=== PATIENT | female | born 1945 | race Caucasian/White ===

== ENCOUNTER 2019-12-07 10:19 | Emergency (ER) | payer MEDICARE, SELFPAY ==
[2019-12-07] VITALS (17 sets, daily range): BP systolic 110–147; BP diastolic 55–73; PULSE 51–67; RESP 12–29; TEMP 36.5; O2SAT 98–100; BMI 25.0
--- NOTE | 2019-12-07 11:29 | DI.RAD.S_ITS ---
PROCEDURE: XR CHEST 2V INDICATIONS: left side chest pain under breast TECHNIQUE: 2 views of the chest were acquired. COMPARISON: None. FINDINGS: Surgical changes and devices: None. Lungs and pleura: Lungs are clear. No pleural effusions or pneumothorax. Mediastinum: Mediastinal contours are normal. Heart size is normal. Bones and chest wall: No suspicious bony abnormalities. Soft tissues appear unremarkable. IMPRESSION: No acute cardiopulmonary abnormalities or focal airspace disease. No abnormalities identified to explain patient's symptoms. Dictated by: Quinten Hernandez M.D. on 12/07/2019 at 11:41 Approved by: Quinten Hernandez M.D. on 12/07/2019 at 11:45
[2019-12-07 12:05] LABS: Add Manual Diff / Slide Review NO; Basophils Absolute Auto 100 /uL (0-100); Basophils Percent Auto 1.1 % (0-2); Eosinophils Absolute Auto 300 /uL (0-450); Eosinophils Percent Auto 5.3 % (2-4); Hematocrit 40.2 % (36-46); Hemoglobin 13.8 g/dL (12.0-16.0); Lymphocytes Absolute Auto 1600 /uL (1100-4500); Lymphocytes Percent Auto 27.1 % (25-40); Mean Corpuscular HGB Conc 34.2 % (30-36); Mean Corpuscular Hemoglobin 29.7 PG (26-34); Mean Corpuscular Volume 86.9 fL (80-100); Monocytes Absolute Auto 600 /uL (0-900); Monocytes Percent Auto 10.2 % (3-14); Neutrophils Absolute Auto 3300 /uL (1500-7000); Neutrophils Percent Auto 56.3 % (50-75); Platelet Count 184 X10^3/uL (150-400); Red Blood Cell Count 4.63 X10^6/uL (4.0-5.2); Red Cell Distribution Width 14.2 % (11.6-14.8); White Blood Cell Count 5.9 X10^3/uL (4.5-11.0)
[2019-12-07 12:11] LABS: Prothrombin Time 10.9 SECONDS (10.1-12.7)
[2019-12-07 12:13] LABS: PTT Partial Thromboplastin Tim 32 SECONDS (26.4-36.2)
[2019-12-07 12:17] LABS: Alanine Aminotransferase 22 IU/L (<35); Albumin 4.4 g/dL (3.5-5.0); Albumin Globulin Ratio 1.5 (1.0-2.8); Alkaline Phosphatase 47 U/L (38-126); Aspartate Aminotransferase 27 IU/L (14-36); BUN Creatinine Ratio 21.3 (6-22); Bilirubin Total 0.5 mg/dL (0.2-1.3); Blood Urea Nitrogen 16 mg/dL (7-17); Calcium 10.2 mg/dL (8.4-10.2); Carbon Dioxide 32 mmol/L (22-32); Chloride 102 mmol/L (98-107); Creatine Kinase 86 U/L (30-135); Estimated Glomerular Filt Rate > 60.0 mL/min (>60); Glucose 94 mg/dL (80-110); HEMOLYSIS < 15 (0-50); Lipase 143 U/L (23-300); Potassium 4.1 mmol/L (3.4-5.1); Sodium 137 mmol/L (137-145); Total Protein 7.4 g/dL (6.3-8.2)
[2019-12-07 12:18] LABS: C-Reactive Protein Quant < 0.5 mg/dL (<1.0)
[2019-12-07 12:22] LABS: Erythrocyte Sedimentation Rate 9 MM/HR (0-20)
[2019-12-07 12:26] LABS: Troponin I < 0.012 ng/mL (0.01-0.034)
--- NOTE | 2019-12-07 12:46 | ED.CHESTPAIN ---
HPI - Chest Pain <ANGIE Carnes - Last Filed: 12/08/19 01:26> General Chief Complaint: Chest Pain Stated Complaint: Right pericardium pain/right arm tingling x5 Time Seen by Provider: 12/07/19 11:09 Source: patient Mode of arrival: Ambulatory Limitations: no limitations History of Present Illness HPI narrative: This is a 74 year female, nonsmoker, who has non contributory history presents to ED with 1 week left upper extremity tingling sensation and discomfort in ulnar nerve distribution and also she noticed left under the breast pressure-like discomfort and swelling last 2 days. Patient reports left arm discomfort worst with movement and it feels like something is catching. She had taken Advil yesterday morning which helped with discomfort. She denies associated symptoms such as breathing difficulty, lightheadedness, nausea or vomiting, C-spine injury or neck tenderness, rash, warmth, recent cough, fever or chills. Patient reports good strenth. Patient has annual mammogram test which was told normal. Patient reports discomfort feels deep inside and rates it as 1/10. She denies pain is reproducible or worsens with changing in position or deep breath. Patient denies family history of early cardiac deaths. She had echocardiogram and treadmill test about 10 years ago when she had started [employer] and felt weird sensation in her chest and was told which were normal. Patient states she had red up about pericarditis and also thought she may have pinched unlar nerve. Related Data Home Medications Medication Instructions Recorded Confirmed levothyroxine [Synthroid] 75 mcg PO QAM #0 04/15/17 12/07/19 epinephrine 0.3 mg IM DAILY PRN 12/07/19 12/07/19 Allergies Allergy/AdvReac Type Severity Reaction Status Date / Time No Known Drug Allergies Allergy Verified 12/07/19 10:36 Review of Systems <ANGIE Carnes - Last Filed: 12/08/19 01:26> Review of Systems Narrative: General: Denies fever, chills, fatigue, malaise, sweats. HEENT: Denies sinus pain, ear pain, sore throat, difficulty swallowing, dizziness. Respiratory: Denies dyspnea, cough, wheezing, hemoptysis, sputum. Cardiovascular: See HPI Gastrointestinal: Denies nausea, vomiting, abdominal pain, diarrhea, constipation, melena. : Denies dysuria, frequency, incontinence, hematuria, urinary retention. Musculoskeletal: See HPI Skin: Denies rash, skin lesions, or other. Neurologic: Denies weakness, headache, numbness, change in speech, confusion, seizures, incoordination. Psychiatric: No concerning psychosocial issues. 12-point review of systems is negative except for those stated above. Patient History <ANGIE Carnes - Last Filed: 12/08/19 01:26> Surgical History H/O thyroidectomy (Acute) Social History Smoking Status: Never smoker Smoking Status: Never smoker alcohol intake frequency: 0-2 drinks per day Substance Use Type: does not use Exam <ANGIE Carnes - Last Filed: 12/08/19 01:26> Narrative Exam Narrative: GEN: Alert, oriented x 3, well appearing and nourished, and in no acute distress. Head: Normal cephalic, atraumatic. No scalp or temporal tenderness, palpable mass or rash. EYES: Pupils are equal, round, and reactive to light and accommodation. Extraocular muscles are intact bilaterally. There is no subconjunctival hemorrhage, exudate and sclera non-icteric. ENT: Hearing grossly intact. Nose without bleeding, purulent discharge or deviation. Mucous membrane moist, no mucosal lesion. Throat without erythema, tonsillar hypertrophy or exudate. Uvula in midline, airway patent. Neck: Trachea in midline. No JVD, non-tender without lymphadenopathy. No masses or thyroid megaly. Supple, non-tender and no meningeal signs. CARDIAC: Normal regular rate and rhythm without murmurs, gallops, or rubs. No chest wall tenderness. No peripheral edema, cyanosis or pallor. Capillary refill is less than 2 seconds. RESPIRATORY: Lungs are clear to auscultate bilaterally. No cough, wheezes, rales, or rhonchi. No stridor, respiratory distress, increase work of breathing, or accessary muscle used. ABD: Abdomen soft, nontender and non-distended. No guarding or rebound tenderness to palpate. Bowel sounds are normal in all 4 quadrants. There is no palpable masses or organomegaly. EXT: Full painless ROM of all extremities with no loss of sensation, strength, effusion or edema. SKIN: Warm, dry, normal color for patient. No erythema, lesions or rash over visible areas. BACK: Nontender without deformity or crepitance. No flank tenderness. NEUROLOGICAL: Alert and oriented to place, time and person. Sensation and motor function intact bilaterally. No facial droops, dysphasia. PSYCHIATRIC: Good judgement and reason, without hallucinations, abnormal affect or abnormal behaviors during the examination. Patient is not suicidal. Initial Vital Signs Initial Vital Signs: Vital Signs Pulse Rate 59 L 12/07/19 10:30 Respiratory Rate 21 12/07/19 10:30 Pulse Oximetry 100 12/07/19 10:30 <Terrence Zhao MD - Last Filed: 12/13/19 03:41> Initial Vital Signs Initial Vital Signs: Vital Signs Pulse Rate 59 L 12/07/19 10:30 Respiratory Rate 21 12/07/19 10:30 Pulse Oximetry 100 12/07/19 10:30 Scores <ANGIE Carnes - Last Filed: 12/08/19 01:26> GCS [place] coma scale eye opening: Spontaneous [place] coma scale verbal response: Orientated [place] coma scale motor response: Obey commands [place] coma scale total score: 15 HEART Score Heart Score history: Slightly Suspicious Heart Score EKG: Normal Heart Score Age: > or = 65 years old Heart Score risk factors: No known risk factors Heart Score troponin: < or = to normal limit Heart Score Total: 2 Course <ANGIE Carnes Last Filed: 12/08/19 01:26> Orders Ordered: ED Orders 12/07/19 10:32 EKG-12 Lead Stat 12/07/19 11:29 XR chest 2V Stat 12/07/19 12:00 C-Reactive Protein Quant Stat Complete Blood Count AUTO DIFF Stat Comprehensive Metabolic Panel Stat Erythrocyte Sedimentation Rate Stat Lipase Stat Partial Thromboplastin Time Stat Prothrombin Time INR Stat Troponin & CK Cardiac Panel Stat Vital Signs Vital signs: Vital Signs - 8 hr 12/07/19 10:30 12/07/19 10:31 12/07/19 10:32 Temperature 97.7 F Pulse Rate 59 L 57 L 67 Respiratory Rate 21 14 14 Blood Pressure 128/58 L 147/73 H Pulse Oximetry 100 100 100 12/07/19 11:00 12/07/19 11:01 12/07/19 11:30 Temperature Pulse Rate 51 L 52 L 58 L Respiratory Rate 12 21 18 Blood Pressure 111/55 L Pulse Oximetry 99 98 99 12/07/19 11:31 12/07/19 12:00 12/07/19 12:01 Temperature Pulse Rate 59 L 51 L 55 L Respiratory Rate 16 22 16 Blood Pressure 121/64 115/57 L Pulse Oximetry 100 100 100 12/07/19 12:30 12/07/19 12:31 Temperature Pulse Rate 55 L 57 L Respiratory Rate 24 20 Blood Pressure 122/56 L Pulse Oximetry 99 100 <Terrence Zhao MD - Last Filed: 12/13/19 03:41> Orders Ordered: ED Orders 12/07/19 10:32 EKG-12 Lead Stat 12/07/19 11:29 XR chest 2V Stat 12/07/19 12:00 C-Reactive Protein Quant Stat Complete Blood Count AUTO DIFF Stat Comprehensive Metabolic Panel Stat Erythrocyte Sedimentation Rate Stat Lipase Stat Partial Thromboplastin Time Stat Prothrombin Time INR Stat Troponin & CK Cardiac Panel Stat Vital Signs Vital signs: Vital Signs - 8 hr 12/07/19 10:30 12/07/19 10:31 12/07/19 10:32 Temperature 97.7 F Pulse Rate 59 L 57 L 67 Respiratory Rate 21 14 14 Blood Pressure 128/58 L 147/73 H Pulse Oximetry 100 100 100 12/07/19 11:00 12/07/19 11:01 12/07/19 11:30 Temperature Pulse Rate 51 L 52 L 58 L Respiratory Rate 12 21 18 Blood Pressure 111/55 L Pulse Oximetry 99 98 99 12/07/19 11:31 12/07/19 12:00 12/07/19 12:01 Temperature Pulse Rate 59 L 51 L 55 L Respiratory Rate 16 22 16 Blood Pressure 121/64 115/57 L Pulse Oximetry 100 100 100 12/07/19 12:30 12/07/19 12:31 Temperature Pulse Rate 55 L 57 L Respiratory Rate 24 20 Blood Pressure 122/56 L Pulse Oximetry 99 100 MDM - Chest Pain <Priyank ANGIE Corral - Last Filed: 12/08/19 01:26> Differential Diagnosis Differential diagnosis: Likely atypical chest pain, costochondritis and other (DVT, ulna nerve radiculopathy, pneumonia, pericarditis,) Medical Records Data Attestation: I reviewed the patient's medical records. Lab Data Attestation: I reviewed the patient's lab results. Result diagrams: 12/07/19 12:00 12/07/19 12:00 Labs: Lab Results 12/07/19 12/07/19 12/07/19 Range/Units 12:00 12:00 12:00 WBC 5.9 (4.5-11.0) X10^3/uL RBC 4.63 (4.0-5.2) X10^6/uL Hgb 13.8 (12.0-16.0) g/dL Hct 40.2 (36-46) % MCV 86.9 (80-100) fL MCH 29.7 (26-34) PG MCHC 34.2 (30-36) % RDW 14.2 (11.6-14.8) % Plt Count 184 (150-400) X10^3/uL Neut % (Auto) 56.3 (50-75) % Lymph % (Auto) 27.1 (25-40) % [place] % (Auto) 10.2 (3-14) % Eos % (Auto) 5.3 H (2-4) % Baso % (Auto) 1.1 (0-2) % Neut # (Auto) 3300 (3545-5479) /uL Lymph # (Auto) 1600 (2111-6839) /uL [place] # (Auto) 600 (0-900) /uL Eos # (Auto) 300 (0-450) /uL Baso # (Auto) 100 (0-100) /uL ESR 9 (0-20) MM/HR PT 10.9 (10.1-12.7) SECONDS INR 1.0 (0.9-1.3) APTT 32 (26.4-36.2) SECONDS Sodium 137 (137-145) mmol/L Potassium 4.1 (3.4-5.1) mmol/L Chloride 102 (98-107) mmol/L Carbon Dioxide 32 (22-32) mmol/L BUN 16 (7-17) mg/dL Creatinine 0.75 (0.52-1.04) mg/dL Estimated GFR > 60.0 (>60) mL/min BUN/Creatinine Ratio 21.3 (6-22) Glucose 94 (80-110) mg/dL Calcium 10.2 (8.4-10.2) mg/dL Total Bilirubin 0.5 (0.2-1.3) mg/dL AST 27 (14-36) IU/L ALT 22 (<35) IU/L Alkaline Phosphatase 47 (38-126) U/L Total Creatine Kinase 86 (30-135) U/L CK-MB (CK-2) TNP CK-MB (CK-2) Rel Index TNP Troponin I < 0.012 (0.01-0.034) ng/mL C-Reactive Protein < 0.5 (<1.0) mg/dL Total Protein 7.4 (6.3-8.2) g/dL Albumin 4.4 (3.5-5.0) g/dL Globulin 3.0 (1.7-4.1) g/dL Albumin/Globulin Ratio 1.5 (1.0-2.8) Lipase 143 (23-300) U/L / Range/Units 14:06 WBC (4.5-11.0) X10^3/uL RBC (4.0-5.2) X10^6/uL Hgb (12.0-16.0) g/dL Hct (36-46) % MCV (80-100) fL MCH (26-34) PG MCHC (30-36) % RDW (11.6-14.8) % Plt Count (150-400) X10^3/uL Neut % (Auto) (50-75) % Lymph % (Auto) (25-40) % [place] % (Auto) (3-14) % Eos % (Auto) (2-4) % Baso % (Auto) (0-2) % Neut # (Auto) (2585-1333) /uL Lymph # (Auto) (4329-0838) /uL [place] # (Auto) (0-900) /uL Eos # (Auto) (0-450) /uL Baso # (Auto) (0-100) /uL ESR (0-20) MM/HR PT (10.1-12.7) SECONDS INR (0.9-1.3) APTT (26.4-36.2) SECONDS Sodium (137-145) mmol/L Potassium (3.4-5.1) mmol/L Chloride (98-107) mmol/L Carbon Dioxide (22-32) mmol/L BUN (7-17) mg/dL Creatinine (0.52-1.04) mg/dL Estimated GFR (>60) mL/min BUN/Creatinine Ratio (6-22) Glucose (80-110) mg/dL Calcium (8.4-10.2) mg/dL Total Bilirubin (0.2-1.3) mg/dL AST (14-36) IU/L ALT (<35) IU/L Alkaline Phosphatase (38-126) U/L Total Creatine Kinase (30-135) U/L CK-MB (CK-2) CK-MB (CK-2) Rel Index Troponin I < 0.012 (0.01-0.034) ng/mL C-Reactive Protein (<1.0) mg/dL Total Protein (6.3-8.2) g/dL Albumin (3.5-5.0) g/dL Globulin (1.7-4.1) g/dL Albumin/Globulin Ratio (1.0-2.8) Lipase (23-300) U/L Urine Dip Bedside Urine Glucose Negative Bedside Urine Bilirubin - Negative Bedside Urine Ketone - Negative Urine Specific [place] 1.010 Bedside Urine Occult Blood - Negative Bedside Urine pH 7.5 Bedside Urine Protein - Negative Bedside Urine Urobilinogen - Negative Bedside Urine Nitrite - Negative Bedside Urine Leukocytes - Negative Esterase ECG Data Attestation: I personally reviewed and interpreted this ECG as follows: Prior ECG tracings: not available for review Interpretation: Sinus bradycardia with sinus arrhythmia rate at 58. Normal [place]. Pr interval 158, QRS duration 70, QT/QTC 404/399. No acute ST changes. MDM Narrative Medical decision making narrative: This is a 74 year female who is relatively healthy and takes daily Synthroid for hypothyroidism presents to ED with left arm ulna nerve distribution tingling sensation and discomfort for last 1 week with left chest discomfort under the breast with swelling in axilla region for last 2 days without associated symptoms. Patient denies constitutional symptoms or dyspnea. Pain is not associated with changing in position or reproducible. Patient reports Advil improves her pain and currently she is not in discomfort. She had treadmill test and echocardiogram 10 years ago which were normal. No known family cardiac history. Patient is afebrile with within normal tensive. No increased work of breathing and o2 sat in 99-100% in Room air. Physical exam is unremarkable and not consistent with DVT or shingles. EkG shows sinus bradycardia without acute ST changes. Chest x-ray indicates No acute cardiopulmonary findings. No leukocytosis and stable H&H. Unremarkable chemistry test with normal lipase. Two sets of cardiac enzymes were negative. Normal coag test. Normal ESR and CRP. Patient lives in [facility] for 6-7 months in year and remaining duration locally and she is planning to return to [place] in January. She does not currently have primary care physician locally. Heart score is 2. Patient advised to use [id number] NSAIDs for left arm and chest discomfort and to establish a primary care physician locally and to follow-up with outpatient cardiac workup. Strict Return precautions were discussed with patient patient verbalized understanding and agreement with treatment plan. 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 Patient verbalized understanding and agreement with the treatment plan. Patient declined any medication since she is comfortable at this time. <Terrence Zhao MD - Last Filed: 12/13/19 03:41> Lab Data Labs: Lab Results 12/07/19 12/07/19 12/07/19 Range/Units 12:00 12:00 12:00 WBC 5.9 (4.5-11.0) X10^3/uL RBC 4.63 (4.0-5.2) X10^6/uL Hgb 13.8 (12.0-16.0) g/dL Hct 40.2 (36-46) % MCV 86.9 (80-100) fL MCH 29.7 (26-34) PG MCHC 34.2 (30-36) % RDW 14.2 (11.6-14.8) % Plt Count 184 (150-400) X10^3/uL Neut % (Auto) 56.3 (50-75) % Lymph % (Auto) 27.1 (25-40) % [place] % (Auto) 10.2 (3-14) % Eos % (Auto) 5.3 H (2-4) % Baso % (Auto) 1.1 (0-2) % Neut # (Auto) 3300 (3617-1822) /uL Lymph # (Auto) 1600 (6072-7816) /uL [place] # (Auto) 600 (0-900) /uL Eos # (Auto) 300 (0-450) /uL Baso # (Auto) 100 (0-100) /uL ESR 9 (0-20) MM/HR PT 10.9 (10.1-12.7) SECONDS INR 1.0 (0.9-1.3) APTT 32 (26.4-36.2) SECONDS Sodium 137 (137-145) mmol/L Potassium 4.1 (3.4-5.1) mmol/L Chloride 102 (98-107) mmol/L Carbon Dioxide 32 (22-32) mmol/L BUN 16 (7-17) mg/dL Creatinine 0.75 (0.52-1.04) mg/dL Estimated GFR > 60.0 (>60) mL/min BUN/Creatinine Ratio 21.3 (6-22) Glucose 94 (80-110) mg/dL Calcium 10.2 (8.4-10.2) mg/dL Total Bilirubin 0.5 (0.2-1.3) mg/dL AST 27 (14-36) IU/L ALT 22 (<35) IU/L Alkaline Phosphatase 47 (38-126) U/L Total Creatine Kinase 86 (30-135) U/L CK-MB (CK-2) TNP CK-MB (CK-2) Rel Index TNP Troponin I < 0.012 (0.01-0.034) ng/mL C-Reactive Protein < 0.5 (<1.0) mg/dL Total Protein 7.4 (6.3-8.2) g/dL Albumin 4.4 (3.5-5.0) g/dL Globulin 3.0 (1.7-4.1) g/dL Albumin/Globulin Ratio 1.5 (1.0-2.8) Lipase 143 (23-300) U/L 12/07/19 Range/Units 14:06 WBC (4.5-11.0) X10^3/uL RBC (4.0-5.2) X10^6/uL Hgb (12.0-16.0) g/dL Hct (36-46) % MCV (80-100) fL MCH (26-34) PG MCHC (30-36) % RDW (11.6-14.8) % Plt Count (150-400) X10^3/uL Neut % (Auto) (50-75) % Lymph % (Auto) (25-40) % [place] % (Auto) (3-14) % Eos % (Auto) (2-4) % Baso % (Auto) (0-2) % Neut # (Auto) (7252-9990) /uL Lymph # (Auto) (5527-7937) /uL [place] # (Auto) (0-900) /uL Eos # (Auto) (0-450) /uL Baso # (Auto) (0-100) /uL ESR (0-20) MM/HR PT (10.1-12.7) SECONDS INR (0.9-1.3) APTT (26.4-36.2) SECONDS Sodium (137-145) mmol/L Potassium (3.4-5.1) mmol/L Chloride (98-107) mmol/L Carbon Dioxide (22-32) mmol/L BUN (7-17) mg/dL Creatinine (0.52-1.04) mg/dL Estimated GFR (>60) mL/min BUN/Creatinine Ratio (6-22) Glucose (80-110) mg/dL Calcium (8.4-10.2) mg/dL Total Bilirubin (0.2-1.3) mg/dL AST (14-36) IU/L ALT (<35) IU/L Alkaline Phosphatase (38-126) U/L Total Creatine Kinase (30-135) U/L CK-MB (CK-2) CK-MB (CK-2) Rel Index Troponin I < 0.012 (0.01-0.034) ng/mL C-Reactive Protein (<1.0) mg/dL Total Protein (6.3-8.2) g/dL Albumin (3.5-5.0) g/dL Globulin (1.7-4.1) g/dL Albumin/Globulin Ratio (1.0-2.8) Lipase (23-300) U/L Urine Dip Bedside Urine Glucose Negative Bedside Urine Bilirubin - Negative Bedside Urine Ketone - Negative Urine Specific [place] 1.010 Bedside Urine Occult Blood - Negative Bedside Urine pH 7.5 Bedside Urine Protein - Negative Bedside Urine Urobilinogen - Negative Bedside Urine Nitrite - Negative Bedside Urine Leukocytes - Negative Esterase Discharge Plan Departure Patient Disposition: Home Clinical Impression: Atypical chest pain Ulnar nerve abnormality Qualifiers: Laterality: left Qualified Code(s): G56.22 - Lesion of ulnar nerve, left upper limb Discharge Date/Time: 12/07/19 15:14 Instructions: DI for Atypical Chest Pain, DI for Arm Pain Activity Restrictions/Additional Instructions: You have been diagnosed with [atypical chest pain and ulnar nerve radiculopathy. EKG, chest x-ray, 2 cardiac enzyme series tests were assuring. Bilateral upper extremity strength is bilaterally intact.]. What to do: *Take your medications as directed. Please continue with [id number] NSAIDS including ibuprofen, Naprosyn, Advil, or Motrin with food as needed for discomfort. *Follow up with your primary care provider in 2-3 days, call for an appointment. Let them know you were seen in the ED and that we asked you to be seen in follow up. You may need of follow-up outpatient cardiac workup in the near future. *Return to ED if you have any new, worsening, or concerning symptoms, such as [worsening or different chest pain, breathing difficulty, nausea/vomiting, cold sweats, weakness to upper extremities, or any acute concerns.]. Prescriptions: No Action levothyroxine [Synthroid] 75 MCG tablet 75 mcg PO QAM Qty: 0 RF: 0 epinephrine 0.3 mg/0.3 mL auto-injector 0.3 mg IM DAILY PRN (Reason: Anaphylaxis) RF: 0 Referrals: [facility] [Outside] <Terrence Zhao MD - Last Filed: 12/13/19 03:41> [facility] I was immediately available in the department for consultation. This documentation has been reviewed and I agree with assessment and plan. Supervised by Terrence Zhao MD
[2019-12-07 14:27] LABS: Troponin I < 0.012 ng/mL (0.01-0.034)
== END 2019-12-07 15:14 | disposition home or self-care (01) ==
PROVIDERS: Emergency Provider Nurse Practitioner Family
DX: R07.89 Other chest pain (principal); G56.22 Lesion of ulnar nerve, left upper limb
CPT/HCPCS: 36415; 71046; 80053; 81003; 82550; 83690; 84484; 85025; 85610; 85651; 85730; 86140; 93005; 93010; 99284

== ENCOUNTER → 2019-12-15 08:45 | Outpatient (CLI) | payer MEDICARE, SELFPAY ==
--- NOTE | 2019-12-15 08:47 | DI.RAD.S_ITS ---
PROCEDURE: XR CERVICAL SPINE 2V OR 3V INDICATIONS: neck pain TECHNIQUE: 3 view(s) of the cervical spine were acquired. COMPARISON: None. FINDINGS: Bones: No fractures or dislocations to the T1 level. The lateral masses of C1 appear intact on the odontoid view. No suspicious bony lesions. There is straightening of the normal cervical lordosis. There is moderate disc space narrowing seen at C4-C5, with moderate to severe disc space narrowing at C5-C6 and C6-C7. Endplate irregularity and sclerosis are seen, which are most prominent at C5-C6. Soft tissues: No prevertebral soft tissue swelling. The visualized lung apices are unremarkable. IMPRESSION: Cervical spine degenerative changes are seen, which are most prominent at C5-C6. Straightening of the normal cervical lordosis is seen, which is commonly observed in patients with muscular spasm. Dictated by: Nilo Ahmadi M.D. on 12/15/2019 at 8:41 Approved by: Nilo Ahmadi M.D. on 12/15/2019 at 8:42
== END ==
PROVIDERS: PCP Registered Nurse; Referring Provider Registered Nurse; Visit Provider Registered Nurse
DX: M54.2 Cervicalgia (principal); M47.812 Spondylosis without myelopathy or radiculopathy, cervical region
CPT/HCPCS: 72040

== ENCOUNTER → 2019-12-27 09:11 | Outpatient (CLI) | payer MEDICARE, SELFPAY ==
[2019-12-28 07:51] LABS: COVID19 Sendout Not Detected (Not Detect)
== END ==
PROVIDERS: PCP Registered Nurse; Visit Provider Nurse Practitioner
DX: Z11.59 Encounter for screening for other viral diseases (principal)
CPT/HCPCS: 87635

== ENCOUNTER → 2019-12-30 07:46 | Outpatient (CLI) | payer MEDICARE, SELFPAY ==
--- NOTE | 2019-12-30 08:44 | P.PCN_ITS ---
Cardiac Stress Test Report Referral & Results Date Patient Seen: 12/30/19 Time Patient Seen: 08:30 Requesting provider: Ramirez Ramirez Indication: Atypical chest pain Rest ECG: Normal sinus rhythm Procedure Note: Today following both written and verbal informed consent, the patient was exercised according to a standard [place] protocol. The patient exercised for a total of 9 minutes 30 seconds achieving a maximum heart rate of 152. Patient's maximum systolic blood pressure was 150. This was an estimated 10.1 METs. Normal hemodynamic response to exercise. Excellent exercise capacity parentheses consistent with an active 42-year-old). Had left arm paresthesia prior to exercise with waxing and waning symptoms during exercise. No other s igns or symptoms of angina. Frequent PACs and occasional PVCs. Minimal diffuse ST deviations that resolved rapidly with rest. Impression: Low probability for ischemia. [place]erv[place] treadmill score 5 is correlated with a 97% 5 year survival rate from cardiac causes of mortality. Please note: Actual ECG tracings can be found in the PACS system.
== END ==
PROVIDERS: PCP Registered Nurse; Referring Provider Registered Nurse; Visit Provider Registered Nurse
DX: R07.89 Other chest pain (principal)
CPT/HCPCS: 93016; 93017; 93018

== ENCOUNTER → 2020-01-02 08:10 | Outpatient (CLI) | payer MEDICARE, SELFPAY ==
--- NOTE | 2020-01-02 08:26 | DI.ECHO.S_ITS ---
Echocardiogram Report + + :Name: CHERRY FRANKS Study Date: 01/02/2020 Height: 61 in : :[facility] Weight: 115 lb : : Gender: Female BSA: 1.5 m2 : :: 1945 Age: 74 yrs BP: 106/67 mmHg: :Reason For Study: BRADYCARDIA : :Ordering Physician: BRIGITTE LANTIGUA, : :JOAO Performed By: Florecita Stoddard : :Referring: JOAO ROBISON : + + Interpretation Summary Left ventricular ejection fraction is estimated to be 65 +/- 5%. There is no significant valvular heart disease. Procedure: A two-dimensional transthoracic echocardiogram with color flow and Doppler was performed. The study quality was technically adequate. There is no prior echocardiogram noted for this patient. The patient was in sinus rhythm with heart rates between 51-68 bpm during the exam. Left Ventricle: The left ventricle is normal in size and wall thickness. Left ventricular ejection fraction is estimated to be 65 +/- 5%. There are no focal wall motion abnormalities. Diastolic parameters suggest probable normal left ventricular diastolic function and normal filling pressures. Right Ventricle: The right ventricle is normal in size and function. Atria: Both atria are normal in size. There is no Doppler evidence for an interatrial shunt. Mitral Valve: The mitral valve is normal in structure and function. There is trace mitral regurgitation. Aortic Valve: The aortic valve is trileaflet. The aortic valve opens well. There is no aortic valve stenosis. No aortic regurgitation is present. Tricuspid Valve: The tricuspid valve is normal in structure and function. The right ventricular systolic pressure is estimated to be at least 21 mmHg based on an estimated right atrial pressure of 3 mm Hg. There is mild tricuspid regurgitation. Pulmonic Valve: The pulmonic valve is not well seen, but is grossly normal. There is a trace or physiologic amount of pulmonic regurgitation. Great Vessels: The aortic root is normal size. The dimensions of the ascending aorta are normal. The IVC is of normal diameter and collapses greater than 50% with a sniff. This suggests a low right atrial pressure of 3 mm Hg. Pericardium/ Pleura There is no pericardial effusion. There is no pleural effusion. MMode/2D Measurements & Calculations LVIDd: 4.7 cm LVOT diam: 2.0 cm LVIDs: 3.0 cm Ao root diam: 2.8 cm FS: 35.5 % asc Aorta Diam: 3.1 cm EPSS: 0.27 cm Ao Arch Diam (Prox Trans): 2.3 cm IVSd: 0.64 cm LVPWd: 0.70 cm LV vail. diameter/BSA (cm/m^2): 3.2 LV sys. diameter/BSA (cm/m^2): 2.0 LA A2 area: 15.3 cm2 RA long axis: 4.5 cm LA A4 area: 15.8 cm2 RA area: 12.3 cm2 LA length (vol): 4.7 cm RA vol: 28.6 ml LA vol: 43.9 ml RA : 19.1 ml/m2 LA vol index: 29.4 ml/m2 IVC diam: 0.89 cm RVD1 (basal): 2.5 cm TAPSE: 2.3 cm Doppler Measurements & Calculations Ao V2 max: 151.0 cm/sec LVOT Max Chemo: 106.3 cm/sec Ao V2 mean: 97.4 cm/sec LV V1 max P.5 mmHg Ao max P.1 mmHg LV V1 VTI: 23.6 cm Ao mean P.5 mmHg SURAJ(I,D): 2.0 cm2 Ao V2 VTI: 35.2 cm SURAJ(V,D): 2.1 cm2 sev ratio: 0.67 SURAJ indexed to BSA (cm^2/m^2): 1.3 MV E max chemo: 70.6 cm/sec TR max chemo: 211.4 cm/sec MV A max chemo: 74.2 cm/sec TR max P.9 mmHg MV E/A: 0.95 PA pr(Accel): 12.2 mmHg Med Peak E' Chemo: 7.5 cm/sec E/E' med: 9.4 Lat Peak E' Chemo: 8.1 cm/sec E/E' lat: 8.7 E/e' average: 9.1 MV dec time: 0.23 sec SV(LVOT): 70.7 ml Reading Physician:12:20 PM
== END ==
PROVIDERS: PCP Registered Nurse; Referring Provider Registered Nurse; Visit Provider Registered Nurse
DX: I07.1 Rheumatic tricuspid insufficiency (principal); I49.9 Cardiac arrhythmia, unspecified
CPT/HCPCS: 93306

== ENCOUNTER → 2020-11-27 15:07 | Outpatient (CLI) | payer MEDICARE, SELFPAY ==
[2020-11-28 07:54] LABS: COVID19 -Nasal RAPID POSITIVE (Negative)
== END ==
PROVIDERS: PCP Registered Nurse; Visit Provider Nurse Practitioner
DX: U07.1 COVID-19 (principal)
CPT/HCPCS: 87635

== ENCOUNTER → 2021-02-18 13:46 | Outpatient (CLI) | payer MEDICARE, SELFPAY ==
--- NOTE | 2021-02-18 13:48 | DI.US.S_ITS ---
PROCEDURE: US PELVIC COMPLETE INDICATIONS: PELVIC PAIN TECHNIQUE: Real-time scanning was performed of the pelvic organs, with image documentation. Additional endovaginal scanning was necessary due to incomplete visualization of the adnexal and endometrial structures by transabdominal scanning. COMPARISON: None. FINDINGS: Uterus: Heterogeneous echotexture, anteverted, and measures 6.2 x 4.2 x 3 cm. The endometrium measures 3 mm in combined thickness. Punctate echogenic focus within the endometrial region. Trace fluid is seen within the endometrial canal. Hypoechoic lesions within the cervix, compatible within both the cyst. Ovaries: Not well demonstrated. Other: No pathologic free abdominal or pelvic fluid. IMPRESSION: 1. Punctate echogenic focus within the endometrial region, which is nonspecific but may reflect hyperplasia, polyp, or prior intervention. 2. Small amount of fluid in the endometrial canal, which may reflect blood products. Dictated by: Edgardo Willis M.D. on 02/18/2021 at 14:56 Approved by: Edagrdo Willis M.D. on 02/18/2021 at 15:01
== END ==
PROVIDERS: PCP Registered Nurse; Referring Provider Obstetrics & Gynecology; Visit Provider Obstetrics & Gynecology
DX: R10.2 Pelvic and perineal pain (principal)
CPT/HCPCS: 76830; 76856

== ENCOUNTER 2021-03-11 11:15 | Outpatient (RCR) | payer MEDICARE, SELFPAY ==
--- NOTE | 2021-02-15 16:25 | PT.OIE ---
Current Diagnoses Cystocele, unspecified (02/15/21) Cystocele, lateral (02/15/21) Past Medical History (Last Updated 12/26/20 @ 18:21 by Montez Mckee MD) H/O thyroidectomy POP-Q stage 2 cystocele Uterovaginal prolapse, incomplete Past Surgical History (Last Reviewed 12/15/19 @ 09:05 by ANGIE Shafer) H/O thyroidectomy Visit Care Team Role Provider Type ANGIE Shafer Primary Care Provider Advanced Ecological Risk Assessor Specialty: Medical Address: [address] [place] [address], [facility] Email: [email or web address] Montez Mckee MD Attending Provider Physician Referring Provider Specialty: HOUSE PAINTER Address: [address] [place] [address], [address], [place], [address] Email: [email or web address] Physical Therapy Initial Evaluation PT-OP-A Visit Information Start: 02/12/21 17:37 Freq: Status: Active Protocol: Document 02/15/21 08:14 LRN (Rec: 02/15/21 09:05 LRN [id number]) Out-Patient Physical Therapy Visit Information Visit Information Visit Type Initial Evaluation Visit Start Time 08:15 Visit Stop Time 09:02 Total Visit Minutes 47 Visit Number 1 Evaluation Information Evaluation Date 02/15/21 Precautions Precautions R RC tear Osteoporosis PMH: Synthroid after thyroidectomy, arthritis of neck. PT-OP-B Current Condition Start: 02/12/21 17:37 Freq: Status: Active Protocol: Document 02/15/21 08:14 LRN (Rec: 02/15/21 09:05 LRN [id number]) Current Condition History of Current Condition Onset Date 2 months ago. Current Complaints prior to pessary: frequency of urination and discomfort History of Current Condition Prolapsed Bladder diagnosis. Started wearing a pessary 6 weeks ago and feels like it has solved all her problems. Has been doing utube exercises . Leaks once in a while. 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 Prior Treatments and Tests Wearing a pessary. Doing Utube ex's. Future Testing and Treatments Planned Ultrasound in 2 days to make sure everything is clear in pelvis. Developmental History Developmental History 2 vaginal children without complications. Babies over 8# each. Treatment Goals Patient/Caregiver Goals Pt goal is to be taught pelvic floor exercises. 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 DVD ex's Current Functional Impairments (Reported) Functional Limitations- ADL's None. 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 Personal Factors Other Personal Factors That May Effect Chronic arthritis of neck. Therapy/Recovery Osteoporosis PT-OP-C Subjective Start: 02/12/21 17:37 Freq: Status: Active Protocol: Document 02/15/21 08:14 LRN (Rec: 02/15/21 09:05 LRN [id number]) Patient Questionnaires Pelvic Pain and Urgency/Frequency Patient Symptom Scale Pelvic Pain Score 3 PT-OP-I Pelvic Floor Start: 02/12/21 17:37 Freq: Status: Active Protocol: Document 02/15/21 08:14 LRN (Rec: 02/15/21 09:05 LRN [id number]) Pelvic Floor Assessment Urine Pelvic Floor Surgery No Leakage Size Small Other Leakage Causes Changing positions. Leaks Per Day 0-1 Voiding Frequency 4-5x/day Nocturia 0 Urine Pad Type Panty Liner Bowel Bowel Surgery No Bowel Symptoms Constipation Other Bowel Symptoms 2 weeks ago had constipation, but not since pessary placed. Bowel Movement Frequency 1x/day [place] Stool Chart Comments Type 2 and 4. Comments Pelvic Floor Comments Wearing a pessary. PT-OP-J Posture/Palpation/Skin Start: 02/12/21 17:37 Freq: Status: Active Protocol: Document 02/15/21 08:14 LRN (Rec: 02/15/21 09:05 LRN [id number]) Posture Evaluation Position Standing Head/C-Spine Posture Forward Head T-Spine Posture Flattened L-Spine Posture Increased Lordosis Shoulder Posture (L) Elevated Scapula Posture (R) Depressed Arm Posture (L) Neutral,(R) Neutral Pelvis Posture Anteriorly Tilted Weight Distribution Balanced Knee Posture (L) Neutral,(R) Neutral PT-OP-K Range of Motion Start: 02/12/21 17:37 Freq: Status: Active Protocol: Document 02/15/21 08:14 LRN (Rec: 02/15/21 09:05 LRN [id number]) Lumbar Spine Range of Motion Lumbar Spine Active Degrees Testing Position Standing Flexion 110 Extension 20 Rotation Left 35 Rotation Right 44 Lateral Flexion Left 17 Lateral Flexion Right 15 ROM Limitations Soft Tissue Tightness Comments hip flexion 110 deg's with 85 deg's hip flexion Hip extension 20 deg's with 10 deg's hip extension Hip Goniometric Range of Motion Hip Right Passive Testing Position Supine Flexion w/Knee Flexed 140 Abduction 35 Internal Rotation 45 External Rotation 70 Left Passive Testing Position Supine Flexion w/Knee Flexed 140 Abduction 30 Internal Rotation 35 External Rotation 75 PT-OP-M Strength Start: 02/12/21 17:37 Freq: Status: Active Protocol: Document 02/15/21 08:14 LRN (Rec: 02/15/21 09:05 LRN [id number]) Trunk Strength Trunk Manual Muscle Testing Rotation Left 3 Fair Rotation Right 4- Good- Hip Strength Hip Manual Muscle Testing Right Flexion (L2) 5 Normal Extension (S1) 4 Good Abduction 5 Normal Adduction 5 Normal External Rotation 3+ Fair+ Internal Rotation 5 Normal Left Flexion (L2) 5 Normal Extension (S1) 4 Good Abduction 5 Normal Adduction 3 Fair External Rotation 3+ Fair+ Internal Rotation 5 Normal PT-OP-Q Treatments Start: 02/12/21 17:37 Freq: Status: Active Protocol: Document 02/15/21 08:14 LRN (Rec: 02/15/21 09:05 LRN [id number]) Self-Care/Home Management Treatment Education Other Education Discussed results of evaluation, goals, and plan of care (POC). Pt agreeable to goals and POC. PT-OP-T Assessment and Plan Start: 02/12/21 17:37 Freq: Status: Active Protocol: Document 02/15/21 08:14 LRN (Rec: 02/15/21 09:05 LRN [id number]) Physical Therapy Assessment Rehab Potential Rehabilitation Potential Excellent Evaluation Complexity Number of Personal Factors/Comorbidities 0 Number of Body Systems Impaired 3 Clinical Presentation at Evaluation Stable Impairments Impairments ROM,Strength Other Impairments Lack of education in proper coordination of exercise and transfers. Goals Two Impairment Pt lacks education in proper coordination of ex and transfer with breathing Short Term Goal (STG) Pt will be educated in proper coordination of breathing with exercise and transfers. STG Duration 02/22/21 Alf Goal (LTG) Pt will have a good understanding of core pressure with exercise to decrease risk of further prolapse. LTG Duration 03/08/21 One Impairment Pt lacks appropriate HEP Sign Painter Goal (LTG) Pt will be independent in a self care HEP. LTG Duration 03/08/21 Assessment Summary Assessment Pt presents with resolution of her urinary symptoms associated with her cytocele. Nissa has had resolution of symptoms since use of pessary. The pt is an active 75 year old female who demonstrates fair knowledge of how to balance her inner core pressure with activity and exercise. She has minor hip mobility asymmetry and does demonstrate mild decrease in core stability and hip weakness. The pt is very receptive to receiving information regarding modification of exercises and is primarily interested in learning how to do her ex's properly. The pt will be assessed at her next visit for PF weakness with exercises issued as needed. The pt will benefit from skilled physical therapy to achieve the above stated goals. Physical Therapy Plan Frequency and Duration Frequency of Treatment 1x/Week Plan of Care Start Date 02/15/21 Plan of Care End Date 03/08/21 Therapeutic Interventions Therapeutic Interventions Coordination Training,Home Exercise Program,Patient/ Caregiver Education,Self-Care/ Home Management,Therapeutic Activities,Therapeutic Exercises Next Visit Focus/Plan Next Note Type Treatment Note Next Visit Plan Assess PF strength and issue appropriate PF exercises. Educate pt in: -core pressure with breathing and exercise. -proper breathing in coordination with PF contractions. -proper breathing coordination with transfers. -fluid management. -bowel care, including bowel massage. -posture training for lordosis and flattened T/S. PF care as needed. HEP: Mobility: trunk rot (L> R), hip IR left, hip ER right. Strength: hip ADD left, bilateral hip ER.
--- NOTE | 2021-02-15 16:25 | PT.OPPOC ---
Physical, Occupational & Speech Therapy At [facility] Current Diagnoses Cystocele, unspecified (02/15/21) Cystocele, lateral (02/15/21) Visit Care Team Role Provider Type ANGIE Shafer Primary Care Provider Advanced Node Js Developer Specialty: Medical Address: [address] [place] [address], [address] Email: [email or web address] Montez Mckee MD Attending Provider Physician Referring Provider Specialty: LINUX ADMIN ENGINEER Address: [address] [place] [address], [address], [place], [address] Email: [email or web address] Plan Of Care PT-OP-T Assessment and Plan Start: 02/12/21 17:37 Freq: Status: Active Protocol: Document 02/15/21 08:14 LRN (Rec: 02/15/21 09:05 LRN [id number]) Physical Therapy Assessment Rehab Potential Rehabilitation Potential Excellent Evaluation Complexity Number of Personal Factors/Comorbidities 0 Number of Body Systems Impaired 3 Clinical Presentation at Evaluation Stable Impairments Impairments ROM,Strength Other Impairments Lack of education in proper coordination of exercise and transfers. Goals Two Impairment Pt lacks education in proper coordination of ex and transfer with breathing Short Term Goal (STG) Pt will be educated in proper coordination of breathing with exercise and transfers. STG Duration 02/22/21 Section Weaver Goal (LTG) Pt will have a good understanding of core pressure with exercise to decrease risk of further prolapse. LTG Duration 03/08/21 One Impairment Pt lacks appropriate HEP Section Weaver Goal (LTG) Pt will be independent in a self care HEP. LTG Duration 03/08/21 Assessment Summary Assessment Pt presents with resolution of her urinary symptoms associated with her cytocele. Nissa has had resolution of symptoms since use of pessary. The pt is an active 75 year old female who demonstrates fair knowledge of how to balance her inner core pressure with activity and exercise. She has minor hip mobility asymmetry and does demonstrate mild decrease in core stability and hip weakness. The pt is very receptive to receiving information regarding modification of exercises and is primarily interested in learning how to do her ex's properly. The pt will be assessed at her next visit for PF weakness with exercises issued as needed. The pt will benefit from skilled physical therapy to achieve the above stated goals. Physical Therapy Plan Frequency and Duration Frequency of Treatment 1x/Week Plan of Care Start Date 02/15/21 Plan of Care End Date 03/08/21 Therapeutic Interventions Therapeutic Interventions Coordination Training,Home Exercise Program,Patient/ Caregiver Education,Self-Care/ Home Management,Therapeutic Activities,Therapeutic Exercises Next Visit Focus/Plan Next Note Type Treatment Note Next Visit Plan Assess PF strength and issue appropriate PF exercises. Educate pt in: -core pressure with breathing and exercise. -proper breathing in coordination with PF contractions. -proper breathing coordination with transfers. -fluid management. -bowel care, including bowel massage. -posture training for lordosis and flattened T/S. PF care as needed. HEP: Mobility: trunk rot (L> R), hip IR left, hip ER right. Strength: hip ADD left, bilateral hip ER. Plan of Care Dates Plan of Care Start Date 02/15/21 Plan of Care End Date 03/08/21 Electronically Signed by: Emily Luna, PT 02/15/21 [id number] Please Sign and Return: I have reviewed this Plan of Care and certify that the skilled therapy services above are required to meet the patient?s needs. Physician Signature Date Printed Name and Credentials Clinical Instructor Signature Printed Name and Credentials
--- NOTE | 2021-02-18 17:40 | PT.OTN ---
Current Diagnoses Constipation, unspecified (02/18/21) Muscle weakness (generalized) (02/18/21) Cystocele, unspecified (02/18/21) Cystocele, lateral (02/18/21) Physical Therapy Treatment Note PT-OP-A Visit Information Start: 02/12/21 17:37 Freq: Status: Active Protocol: Document 02/18/21 08:18 LRN (Rec: 02/18/21 09:04 LRN [id number]) Out-Patient Physical Therapy Visit Information Visit Information Visit Type Treatment Note Visit Start Time 08:18 Visit Stop Time 09:02 Total Visit Minutes 44 Visit Number 2 Evaluation Information Evaluation Date 02/15/21 Precautions Precautions R RC tear Osteoporosis PMH: Synthroid after thyroidectomy, arthritis of neck. PT-OP-B Current Condition Start: 02/12/21 17:37 Freq: Status: Active Protocol: Document 02/15/21 08:14 LRN (Rec: 02/15/21 09:05 LRN [id number]) Current Condition History of Current Condition Onset Date 2 months ago. Current Complaints prior to pessary: frequency of urination and discomfort History of Current Condition Prolapsed Bladder diagnosis. Started wearing a pessary 6 weeks ago and feels like it has solved all her problems. Has been doing utube exercises . Leaks once in a while. 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 Prior Treatments and Tests Wearing a pessary. Doing Utube ex's. Future Testing and Treatments Planned Ultrasound in 2 days to make sure everything is clear in pelvis. Developmental History Developmental History 2 vaginal children without complications. Babies over 8# each. Treatment Goals Patient/Caregiver Goals Pt goal is to be taught pelvic floor exercises. 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 DVD ex's Current Functional Impairments (Reported) Functional Limitations- ADL's None. 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 Personal Factors Other Personal Factors That May Effect Chronic arthritis of neck. Therapy/Recovery Osteoporosis PT-OP-C Subjective Start: 02/12/21 17:37 Freq: Status: Active Protocol: Document 02/18/21 08:18 LRN (Rec: 02/18/21 09:04 LRN [id number]) OP-PT Subjective Patient Comments Patient Comments No problems with pessary. PT-OP-I Pelvic Floor Start: 02/12/21 17:37 Freq: Status: Active Protocol: Document 02/18/21 08:18 LRN (Rec: 02/18/21 09:04 LRN [id number]) Pelvic Floor Assessment Contraction Ability Voluntary Contraction Moderate Voluntary Relaxation Moderate Manual Muscle Testing Left 2 Manual Muscle Testing Right 3 Manual Muscle Testing Anterior 3 Manual Muscle Testing Posterior 2 Muscle Endurance (Seconds) 3 Number of Quick Contractions In 10 10 Seconds PT-OP-J Posture/Palpation/Skin Start: 02/12/21 17:37 Freq: Status: Active Protocol: Document 02/15/21 08:14 LRN (Rec: 02/15/21 09:05 LRN [id number]) Posture Evaluation Position Standing Head/C-Spine Posture Forward Head T-Spine Posture Flattened L-Spine Posture Increased Lordosis Shoulder Posture (L) Elevated Scapula Posture (R) Depressed Arm Posture (L) Neutral,(R) Neutral Pelvis Posture Anteriorly Tilted Weight Distribution Balanced Knee Posture (L) Neutral,(R) Neutral PT-OP-K Range of Motion Start: 02/12/21 17:37 Freq: Status: Active Protocol: Document 02/15/21 08:14 LRN (Rec: 02/15/21 09:05 LRN [id number]) Lumbar Spine Range of Motion Lumbar Spine Active Degrees Testing Position Standing Flexion 110 Extension 20 Rotation Left 35 Rotation Right 44 Lateral Flexion Left 17 Lateral Flexion Right 15 ROM Limitations Soft Tissue Tightness Comments hip flexion 110 deg's with 85 deg's hip flexion Hip extension 20 deg's with 10 deg's hip extension Hip Goniometric Range of Motion Hip Right Passive Testing Position Supine Flexion w/Knee Flexed 140 Abduction 35 Internal Rotation 45 External Rotation 70 Left Passive Testing Position Supine Flexion w/Knee Flexed 140 Abduction 30 Internal Rotation 35 External Rotation 75 PT-OP-M Strength Start: 02/12/21 17:37 Freq: Status: Active Protocol: Document 02/15/21 08:14 LRN (Rec: 02/15/21 09:05 LRN [id number]) Trunk Strength Trunk Manual Muscle Testing Rotation Left 3 Fair Rotation Right 4- Good- Hip Strength Hip Manual Muscle Testing Right Flexion (L2) 5 Normal Extension (S1) 4 Good Abduction 5 Normal Adduction 5 Normal External Rotation 3+ Fair+ Internal Rotation 5 Normal Left Flexion (L2) 5 Normal Extension (S1) 4 Good Abduction 5 Normal Adduction 3 Fair External Rotation 3+ Fair+ Internal Rotation 5 Normal PT-OP-Q Treatments Start: 02/12/21 17:37 Freq: Status: Active Protocol: Document 02/18/21 08:18 LRN (Rec: 02/18/21 09:04 [facility] [id number]) Therapeutic Exercises Supine Exercises Kegel Quick Flick w/TB hip AB assist Supine Exercise Name Kegel Quick Flick w/TB hip AB assist Reps/Minutes 3' Comments Much V cuing of Kegel with hip AB LE Roll in/outs Supine Exercise Name LE Roll in/outs , with & without TBand Equipment Used Lev 1 TBand Reps/Minutes 12' Comments Extra time for training in proper breathing & movement coordination Kegels Supine Exercise Name Long Holds & Quick Flicks around the PF clock Reps/Minutes 17' Comments 8:39 - 9:41 Self-Care/Home Management Treatment Education Caregiver Education 12' Other Education Discussed at length deep breathing habits and breathwork with transfers, lifting, exercising. Discussed pelvic anatomy and effects of constipation and positioning of internal organs on each other. Reviewed proper deep breathing technique Educated pt at length in Kegels. Activities Self-Care/Home Management Activities Issued & reviewed HEP: Kegels: Long holds & Quick Flicks PT-OP-T Assessment and Plan Start: 02/12/21 17:37 Freq: Status: Active Protocol: Document 02/18/21 08:18 LRN (Rec: 02/18/21 09:04 [facility] [id number]) Physical Therapy Assessment Goals Two Impairment Pt lacks education in proper coordination of ex and transfer with breathing Short Term Goal (STG) Pt will be educated in proper coordination of breathing with exercise and transfers. STG Duration 02/22/21 (02/18/21: MET GOAL) Group Home Goal (LTG) Pt will have a good understanding of core pressure with exercise to decrease risk of further prolapse. LTG Duration 03/08/21 (02/18/21: Progressed) One Impairment Pt lacks appropriate HEP Hotel Housekeeper Goal (LTG) Pt will be independent in a self care HEP. LTG Duration 03/08/21 Progress Towards Goals Progress Comments STG #2 MET Assessment Summary Assessment Pt very receptive to education information. Pt able to perform ex and breathing techniques with training. PF assessment: Quick Flicks normal except slight weakness of 6 & 9 O'Clock (able to feel lift at 9 O'Clock but less than at 3 O'Clock), weak at 6 O'Clock, Quick flick not felt. Pt has weakness of endurance hold of PF with decrease in hold after 3 secs, but contraction felt. Pt needs more endurance ex's and Quick Flick at posterior PF. Pt needs training for less gluteal substitution with PF contraction. Pt tissues looked slightly dry but health coloration. Physical Therapy Plan Frequency and Duration Frequency of Treatment 1x/Week Plan of Care Start Date 02/15/21 Plan of Care End Date 03/08/21 Next Visit Focus/Plan Next Note Type Treatment Note Next Visit Plan Educate pt in: -ex to limit prolapse stress on bladder (different abdominal ex) -fluid management. -bowel care, including bowel massage. -posture training for lordosis and flattened T/S. HEP: Mobility: trunk rot (L> R). Strength: hip ADD left, bilateral hip ER. DC in 1-3 visits.
--- NOTE | 2021-02-26 16:57 | PT.OTN ---
Current Diagnoses Constipation, unspecified (02/26/21) Muscle weakness (generalized) (02/26/21) Cystocele, unspecified (02/26/21) Cystocele, lateral (02/26/21) Physical Therapy Treatment Note PT-OP-A Visit Information Start: 02/12/21 17:37 Freq: Status: Active Protocol: Document 02/26/21 14:18 LRN (Rec: 02/26/21 15:08 LRN [id number]) Out-Patient Physical Therapy Visit Information Visit Information Visit Type Treatment Note Visit Start Time 14:18 Visit Stop Time 15:01 Total Visit Minutes 43 Visit Number 1 Evaluation Information Evaluation Date 02/15/21 Precautions Precautions R RC tear Osteoporosis PMH: Synthroid after thyroidectomy, arthritis of neck. PT-OP-B Current Condition Start: 02/12/21 17:37 Freq: Status: Active Protocol: Document 02/15/21 08:14 LRN (Rec: 02/15/21 09:05 LRN [id number]) Current Condition History of Current Condition Onset Date 2 months ago. Current Complaints prior to pessary: frequency of urination and discomfort History of Current Condition Prolapsed Bladder diagnosis. Started wearing a pessary 6 weeks ago and feels like it has solved all her problems. Has been doing utube exercises . Leaks once in a while. 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 Prior Treatments and Tests Wearing a pessary. Doing Utube ex's. Future Testing and Treatments Planned Ultrasound in 2 days to make sure everything is clear in pelvis. Developmental History Developmental History 2 vaginal children without complications. Babies over 8# each. Treatment Goals Patient/Caregiver Goals Pt goal is to be taught pelvic floor exercises. 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 DVD ex's Current Functional Impairments (Reported) Functional Limitations- ADL's None. 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 Personal Factors Other Personal Factors That May Effect Chronic arthritis of neck. Therapy/Recovery Osteoporosis PT-OP-C Subjective Start: 02/12/21 17:37 Freq: Status: Active Protocol: Document 02/26/21 14:18 LRN (Rec: 02/26/21 15:08 LRN [id number]) OP-PT Subjective Patient Comments Patient Comments Doing Kegels and belly breath and now able to do in yoga. No problem with pessary, no problems noted with ultrasound . No cyst. No pelvic pain. PT-OP-I Pelvic Floor Start: 02/12/21 17:37 Freq: Status: Active Protocol: Document 02/18/21 08:18 LRN (Rec: 02/18/21 09:04 LRN [id number]) Pelvic Floor Assessment Contraction Ability Voluntary Contraction Moderate Voluntary Relaxation Moderate Manual Muscle Testing Left 2 Manual Muscle Testing Right 3 Manual Muscle Testing Anterior 3 Manual Muscle Testing Posterior 2 Muscle Endurance (Seconds) 3 Number of Quick Contractions In 10 10 Seconds PT-OP-J Posture/Palpation/Skin Start: 02/12/21 17:37 Freq: Status: Active Protocol: Document 02/15/21 08:14 LRN (Rec: 02/15/21 09:05 LRN [id number]) Posture Evaluation Position Standing Head/C-Spine Posture Forward Head T-Spine Posture Flattened L-Spine Posture Increased Lordosis Shoulder Posture (L) Elevated Scapula Posture (R) Depressed Arm Posture (L) Neutral,(R) Neutral Pelvis Posture Anteriorly Tilted Weight Distribution Balanced Knee Posture (L) Neutral,(R) Neutral PT-OP-K Range of Motion Start: 02/12/21 17:37 Freq: Status: Active Protocol: Document 02/15/21 08:14 LRN (Rec: 02/15/21 09:05 LRN [id number]) Lumbar Spine Range of Motion Lumbar Spine Active Degrees Testing Position Standing Flexion 110 Extension 20 Rotation Left 35 Rotation Right 44 Lateral Flexion Left 17 Lateral Flexion Right 15 ROM Limitations Soft Tissue Tightness Comments hip flexion 110 deg's with 85 deg's hip flexion Hip extension 20 deg's with 10 deg's hip extension Hip Goniometric Range of Motion Hip Right Passive Testing Position Supine Flexion w/Knee Flexed 140 Abduction 35 Internal Rotation 45 External Rotation 70 Left Passive Testing Position Supine Flexion w/Knee Flexed 140 Abduction 30 Internal Rotation 35 External Rotation 75 PT-OP-M Strength Start: 02/12/21 17:37 Freq: Status: Active Protocol: Document 02/15/21 08:14 LRN (Rec: 02/15/21 09:05 LRN [id number]) Trunk Strength Trunk Manual Muscle Testing Rotation Left 3 Fair Rotation Right 4- Good- Hip Strength Hip Manual Muscle Testing Right Flexion (L2) 5 Normal Extension (S1) 4 Good Abduction 5 Normal Adduction 5 Normal External Rotation 3+ Fair+ Internal Rotation 5 Normal Left Flexion (L2) 5 Normal Extension (S1) 4 Good Abduction 5 Normal Adduction 3 Fair External Rotation 3+ Fair+ Internal Rotation 5 Normal PT-OP-Q Treatments Start: 02/12/21 17:37 Freq: Status: Active Protocol: Document 02/26/21 14:18 LRN (Rec: 02/26/21 15:08 LRN [id number]) Therapeutic Exercises Supine Exercises TA tightening Supine Exercise Name TA tightening Reps/Minutes 4' Comments Extra time taken for pt to achieve awareness of TA contraction. Heels off wall Supine Exercise Name Heels off wall Side bilateral Reps/Minutes 4' Comments Pt not able to do with much phys & v. cuing for TA tightening Hands/knees push Supine Exercise Name Hands/knees push Side bilateral Reps/Minutes 4' Comments Extra time to find best position for lower ab tightening. Lower pelvic rot Supine Exercise Name Knee rolls Side bilateral Equipment Used L1 TB Reps/Minutes 8' Comments Extra time to find best position for lower ab tightening. Self-Care/Home Management Treatment Education Patient Education Home Exercise Program Other Education Neutral spine education with imagery of spine descriptions. Pt educated in appropriate fluid intake for recommended hydration levels with discussion of effects on bowels. Pt educated and trained in bowel massage with handout issued. Pt educated in defer technique for bladder retraining with review of handout and discussion. Pt education and discussion of compensatory methods to decrease core pressures on bladder with use of proper breathing techniques during exercise. Activities Self-Care/Home Management Activities Issued & reviewed HEP: Roll for Control: Feet off wall, hands/knees push. PT-OP-T Assessment and Plan Start: 02/12/21 17:37 Freq: Status: Active Protocol: Document 02/26/21 14:18 LRN (Rec: 02/26/21 15:08 LRN [id number]) Physical Therapy Assessment Goals Two Impairment Pt lacks education in proper coordination of ex and transfer with breathing Short Term Goal (STG) Pt will be educated in proper coordination of breathing with exercise and transfers. STG Duration 02/22/21 (02/18/21: MET GOAL) Longterm Goal (LTG) Pt will have a good understanding of core pressure with exercise to decrease risk of further prolapse. (02/26/21: Pt educated in proper breathing techniques during exercise to reduce pressure on ) LTG Duration 03/08/21 (02/26/21: MET GOAL) One Impairment Pt lacks appropriate HEP Longterm Goal (LTG) Pt will be independent in a self care HEP. LTG Duration 03/08/21 Assessment Summary Assessment Pt is very receptive to home ex's of TA and trunk rotators and appears to be able to coordinate proper breathing with PF contraction during exercise. She has difficulty maintaining a TA contraction with exercises. Pt has had no further pelvic pain and has no complaints of urinary leakage. She has urgency to urinate apparently only first thing in the morning because she is sleeping through the night. Pt probably could benefit with increased hydration to improve bowel function, but pt prefers to limit fluids in order to sleep through the night. Completion of her HEP may be achieved next visit; therefore if pt chooses not to return for follow up on remaining ex' s, she may discharge to her HEP next visit. Physical Therapy Plan Frequency and Duration Frequency of Treatment 1x/Week Plan of Care Start Date 02/15/21 Plan of Care End Date 03/08/21 Next Visit Focus/Plan Next Note Type Treatment Note Next Visit Plan Educate pt in: -ex to limit prolapse stress on bladder with daily activities of transfers. -posture training for lordosis and flattened T/S. Add HEP: Trunk rot AROM stretch(L>R). Add HEP: Strengthening: hip ADD left, bilateral hip ER. DC to HEP when pt independent and safe.
--- NOTE | 2021-03-11 17:59 | PT.OTN ---
Current Diagnoses Constipation, unspecified (03/11/21) Muscle weakness (generalized) (03/11/21) Cystocele, unspecified (03/11/21) Cystocele, lateral (03/11/21) Physical Therapy Treatment Note PT-OP-A Visit Information Start: 02/12/21 17:37 Freq: Status: Active Protocol: Document 03/11/21 11:29 LRN (Rec: 03/11/21 12:16 LRN [id number]) Out-Patient Physical Therapy Visit Information Visit Information Visit Type Treatment Note Visit Start Time : Visit Stop Time 12:08 Total Visit Minutes 38 Visit Number 2 Evaluation Information Evaluation Date 02/15/21 Precautions Precautions R RC tear Osteoporosis PMH: Synthroid after thyroidectomy, arthritis of neck. PT-OP-B Current Condition Start: 02/12/21 17:37 Freq: Status: Active Protocol: Document 02/15/21 08:14 LRN (Rec: 02/15/21 09:05 LRN [id number]) Current Condition History of Current Condition Onset Date 2 months ago. Current Complaints prior to pessary: frequency of urination and discomfort History of Current Condition Prolapsed Bladder diagnosis. Started wearing a pessary 6 weeks ago and feels like it has solved all her problems. Has been doing utube exercises . Leaks once in a while. 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 Prior Treatments and Tests Wearing a pessary. Doing Utube ex's. Future Testing and Treatments Planned Ultrasound in 2 days to make sure everything is clear in pelvis. Developmental History Developmental History 2 vaginal children without complications. Babies over 8# each. Treatment Goals Patient/Caregiver Goals Pt goal is to be taught pelvic floor exercises. 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 DVD ex's Current Functional Impairments (Reported) Functional Limitations- ADL's None. 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 Personal Factors Other Personal Factors That May Effect Chronic arthritis of neck. Therapy/Recovery Osteoporosis PT-OP-C Subjective Start: 02/12/21 17:37 Freq: Status: Active Protocol: Document 03/11/21 11:29 LRN (Rec: 03/11/21 12:16 LRN [id number]) OP-PT Subjective Patient Comments Patient Comments Doing pretty good. Doing ex's when can, things aren't falling out, deep breathing better, doinhg PF contractions more. PT-OP-I Pelvic Floor Start: 02/12/21 17:37 Freq: Status: Active Protocol: Document 02/18/21 08:18 LRN (Rec: 02/18/21 09:04 LRN [id number]) Pelvic Floor Assessment Contraction Ability Voluntary Contraction Moderate Voluntary Relaxation Moderate Manual Muscle Testing Left 2 Manual Muscle Testing Right 3 Manual Muscle Testing Anterior 3 Manual Muscle Testing Posterior 2 Muscle Endurance (Seconds) 3 Number of Quick Contractions In 10 10 Seconds PT-OP-J Posture/Palpation/Skin Start: 02/12/21 17:37 Freq: Status: Active Protocol: Document 02/15/21 08:14 LRN (Rec: 02/15/21 09:05 LRN [id number]) Posture Evaluation Position Standing Head/C-Spine Posture Forward Head T-Spine Posture Flattened L-Spine Posture Increased Lordosis Shoulder Posture (L) Elevated Scapula Posture (R) Depressed Arm Posture (L) Neutral,(R) Neutral Pelvis Posture Anteriorly Tilted Weight Distribution Balanced Knee Posture (L) Neutral,(R) Neutral PT-OP-K Range of Motion Start: 02/12/21 17:37 Freq: Status: Active Protocol: Document 02/15/21 08:14 LRN (Rec: 02/15/21 09:05 LRN [id number]) Lumbar Spine Range of Motion Lumbar Spine Active Degrees Testing Position Standing Flexion 110 Extension 20 Rotation Left 35 Rotation Right 44 Lateral Flexion Left 17 Lateral Flexion Right 15 ROM Limitations Soft Tissue Tightness Comments hip flexion 110 deg's with 85 deg's hip flexion Hip extension 20 deg's with 10 deg's hip extension Hip Goniometric Range of Motion Hip Right Passive Testing Position Supine Flexion w/Knee Flexed 140 Abduction 35 Internal Rotation 45 External Rotation 70 Left Passive Testing Position Supine Flexion w/Knee Flexed 140 Abduction 30 Internal Rotation 35 External Rotation 75 PT-OP-M Strength Start: 02/12/21 17:37 Freq: Status: Active Protocol: Document 02/15/21 08:14 LRN (Rec: 02/15/21 09:05 LRN [id number]) Trunk Strength Trunk Manual Muscle Testing Rotation Left 3 Fair Rotation Right 4- Good- Hip Strength Hip Manual Muscle Testing Right Flexion (L2) 5 Normal Extension (S1) 4 Good Abduction 5 Normal Adduction 5 Normal External Rotation 3+ Fair+ Internal Rotation 5 Normal Left Flexion (L2) 5 Normal Extension (S1) 4 Good Abduction 5 Normal Adduction 3 Fair External Rotation 3+ Fair+ Internal Rotation 5 Normal PT-OP-Q Treatments Start: 02/12/21 17:37 Freq: Status: Active Protocol: Document 03/11/21 11:29 LRN (Rec: 03/11/21 12:16 LRN [id number]) Therapeutic Exercises Supine Exercises Lower pelvic rot Supine Exercise Name Knee rolls Side right Equipment Used L1 TB Reps/Minutes 8' Comments Extra time to find best position for lower ab tightening. Sidelying Exercises Hip ER/TA Sidelying Exercise Name Hip ER/TA/verbal I/S for PF Side bilateral Reps/Minutes 9' Comments Much phys & v cuing for stab of pelvis w/hip ER. Hip AD/PF/TA Sidelying Exercise Name Hip AD w/PF contractions Side left Reps/Minutes 6' Comments Extra time to teach pt positioning and ex Sitting Exercises Trunk rot stretch Sitting Exercise Name Trunk rot Side left Reps/Minutes 5' Self-Care/Home Management Treatment Education Patient Education Body Mechanics,Home Exercise Program,Posture Other Education Educated pt in: -ex to limit prolapse stress on bladder with daily activities of transfers. -posture training for lordosis and flattened T/S, discussion in sitting & standing. - proper body mechanics for lifting, reaching, moving. Activities Self-Care/Home Management Activities Issued & reviewed HEP: trunk stretch, hip AD & ER strengthening. PT-OP-T Assessment and Plan Start: 02/12/21 17:37 Freq: Status: Active Protocol: Document 03/11/21 11:29 LRN (Rec: 03/11/21 12:16 LRN [id number]) Physical Therapy Assessment Rehab Potential Rehabilitation Potential Excellent Evaluation Complexity Number of Personal Factors/Comorbidities 0 Number of Body Systems Impaired 3 Clinical Presentation at Evaluation Stable Impairments Impairments ROM,Strength Other Impairments Lack of education in proper coordination of exercise and transfers. Goals Two Impairment Pt lacks education in proper coordination of ex and transfer with breathing Short Term Goal (STG) Pt will be educated in proper coordination of breathing with exercise and transfers. STG Duration 02/22/21 (02/18/21: MET GOAL) Longterm Goal (LTG) Pt will have a good understanding of core pressure with exercise to decrease risk of further prolapse. (02/26/21: Pt educated in proper breathing techniques during exercise to reduce pressure on ) LTG Duration 03/08/21 (02/26/21: MET GOAL) One Impairment Pt lacks appropriate HEP Medical Technologist Hematology Goal (LTG) Pt will be independent in a self care HEP. LTG Duration 03/08/21 (03/11/21: MET GOAL ) Assessment Summary Assessment Pt is doing very well with her current HEP, and appeared to have a good understanding of her exercises added today. The pt's goals were met today, after a necessary added visit for placement on a final HEP which included a trunk stretch and LE strengthening exercises. The pt will benefit from this final treatment session to meet the above stated goals. Physical Therapy Plan Frequency and Duration Frequency of Treatment 1x/Week Plan of Care Start Date 03/11/21 Plan of Care End Date 03/11/21 Therapeutic Interventions Therapeutic Interventions Home Exercise Program,Patient/ Caregiver Education,Self-Care/ Home Management,Therapeutic Activities,Therapeutic Exercises Discharge Physical Therapy Discharge Reasons Goals Met Discharge Comments Pt needed to be seen today for completion of her HEP and education as indicated above.
--- NOTE | 2021-03-11 18:00 | PT.OPPOC ---
Physical, Occupational & Speech Therapy At [facility] Current Diagnoses Constipation, unspecified (03/11/21) Muscle weakness (generalized) (03/11/21) Cystocele, unspecified (03/11/21) Cystocele, lateral (03/11/21) Visit Care Team Role Provider Type ANGIE Shafer Primary Care Provider Advanced Flying Squad Worker Specialty: Medical Address: [address] [place] [address], [id number] Email: [email or web address] Montez Mckee MD Attending Provider Physician Referring Provider Specialty: REWINDER OPERATOR HELPER Address: [address] [place] [address], [address], [place], [address] Email: [email or web address] Plan Of Care PT-OP-T Assessment and Plan Start: 02/12/21 17:37 Freq: Status: Active Protocol: Document 03/11/21 11:29 LRN (Rec: 03/11/21 12:16 LRN [id number]) Physical Therapy Assessment Rehab Potential Rehabilitation Potential Excellent Evaluation Complexity Number of Personal Factors/Comorbidities 0 Number of Body Systems Impaired 3 Clinical Presentation at Evaluation Stable Impairments Impairments ROM,Strength Other Impairments Lack of education in proper coordination of exercise and transfers. Goals Two Impairment Pt lacks education in proper coordination of ex and transfer with breathing Short Term Goal (STG) Pt will be educated in proper coordination of breathing with exercise and transfers. STG Duration 02/22/21 (02/18/21: MET GOAL) Education Nurse Goal (LTG) Pt will have a good understanding of core pressure with exercise to decrease risk of further prolapse. (02/26/21: Pt educated in proper breathing techniques during exercise to reduce pressure on ) LTG Duration 03/08/21 (02/26/21: MET GOAL) One Impairment Pt lacks appropriate HEP Education Nurse Goal (LTG) Pt will be independent in a self care HEP. LTG Duration 03/08/21 (03/11/21: MET GOAL ) Assessment Summary Assessment Pt is doing very well with her current HEP, and appeared to have a good understanding of her exercises added today. The pt's goals were met today, after a necessary added visit for placement on a final HEP which included a trunk stretch and LE strengthening exercises. The pt will benefit from this final treatment session to meet the above stated goals. Physical Therapy Plan Frequency and Duration Frequency of Treatment 1x/Week Plan of Care Start Date 03/11/21 Plan of Care End Date 03/11/21 Therapeutic Interventions Therapeutic Interventions Home Exercise Program,Patient/ Caregiver Education,Self-Care/ Home Management,Therapeutic Activities,Therapeutic Exercises Discharge Physical Therapy Discharge Reasons Goals Met Discharge Comments Pt needed to be seen today for completion of her HEP and education as indicated above. Plan of Care Dates Plan of Care Start Date 03/11/21 Plan of Care End Date 03/11/21 Electronically Signed by: Emily Luna, PT 03/11/21 1800 Please Sign and Return: I have reviewed this Plan of Care and certify that the skilled therapy services above are required to meet the patient?s needs. Physician Signature Date Printed Name and Credentials Clinical Instructor Signature Printed Name and Credentials
--- NOTE | 2021-03-12 16:34 | PT.OPDS ---
Current Diagnoses Constipation, unspecified (03/11/21) Muscle weakness (generalized) (03/11/21) Cystocele, unspecified (03/11/21) Cystocele, lateral (03/11/21) Visit Care Team Role Provider Type ANIGE Shafer Primary Care Provider Advanced Literacy Specialist Specialty: Medical Address: [address] [place] [address], [id number] Email: [email or web address] Montez Mckee MD Attending Provider Physician Referring Provider Specialty: PLATE MAKER Address: [address] [place] [address], [address], [place], [address] Email: [email or web address] Visit Number Visit Number 2 Discharge Summary PT-OP-B Current Condition Start: 02/12/21 17:37 Freq: Status: Active Protocol: Document 02/15/21 08:14 LRN (Rec: 02/15/21 09:05 LRN [id number]) Current Condition History of Current Condition Onset Date 2 months ago. Current Complaints prior to pessary: frequency of urination and discomfort History of Current Condition Prolapsed Bladder diagnosis. Started wearing a pessary 6 weeks ago and feels like it has solved all her problems. Has been doing utube exercises . Leaks once in a while. 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 Prior Treatments and Tests Wearing a pessary. Doing Utube ex's. Future Testing and Treatments Planned Ultrasound in 2 days to make sure everything is clear in pelvis. Developmental History Developmental History 2 vaginal children without complications. Babies over 8# each. Treatment Goals Patient/Caregiver Goals Pt goal is to be taught pelvic floor exercises. 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 DVD ex's Current Functional Impairments (Reported) Functional Limitations- ADL's None. 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 Personal Factors Other Personal Factors That May Effect Chronic arthritis of neck. Therapy/Recovery Osteoporosis PT-OP-C Subjective Start: 02/12/21 17:37 Freq: Status: Active Protocol: Document 03/11/21 11:29 LRN (Rec: 03/11/21 12:16 LRN [id number]) OP-PT Subjective Patient Comments Patient Comments Doing pretty good. Doing ex's when can, things aren't falling out, deep breathing better, doinhg PF contractions more. PT-OP-I Pelvic Floor Start: 02/12/21 17:37 Freq: Status: Active Protocol: Document 02/18/21 08:18 LRN (Rec: 02/18/21 09:04 LRN [id number]) Pelvic Floor Assessment Contraction Ability Voluntary Contraction Moderate Voluntary Relaxation Moderate Manual Muscle Testing Left 2 Manual Muscle Testing Right 3 Manual Muscle Testing Anterior 3 Manual Muscle Testing Posterior 2 Muscle Endurance (Seconds) 3 Number of Quick Contractions In 10 10 Seconds PT-OP-J Posture/Palpation/Skin Start: 02/12/21 17:37 Freq: Status: Active Protocol: Document 02/15/21 08:14 LRN (Rec: 02/15/21 09:05 LRN [id number]) Posture Evaluation Position Standing Head/C-Spine Posture Forward Head T-Spine Posture Flattened L-Spine Posture Increased Lordosis Shoulder Posture (L) Elevated Scapula Posture (R) Depressed Arm Posture (L) Neutral,(R) Neutral Pelvis Posture Anteriorly Tilted Weight Distribution Balanced Knee Posture (L) Neutral,(R) Neutral PT-OP-K Range of Motion Start: 02/12/21 17:37 Freq: Status: Active Protocol: Document 02/15/21 08:14 LRN (Rec: 02/15/21 09:05 LRN [id number]) Lumbar Spine Range of Motion Lumbar Spine Active Degrees Testing Position Standing Flexion 110 Extension 20 Rotation Left 35 Rotation Right 44 Lateral Flexion Left 17 Lateral Flexion Right 15 ROM Limitations Soft Tissue Tightness Comments hip flexion 110 deg's with 85 deg's hip flexion Hip extension 20 deg's with 10 deg's hip extension Hip Goniometric Range of Motion Hip Right Passive Testing Position Supine Flexion w/Knee Flexed 140 Abduction 35 Internal Rotation 45 External Rotation 70 Left Passive Testing Position Supine Flexion w/Knee Flexed 140 Abduction 30 Internal Rotation 35 External Rotation 75 PT-OP-M Strength Start: 02/12/21 17:37 Freq: Status: Active Protocol: Document 02/15/21 08:14 LRN (Rec: 02/15/21 09:05 LRN [id number]) Trunk Strength Trunk Manual Muscle Testing Rotation Left 3 Fair Rotation Right 4- Good- Hip Strength Hip Manual Muscle Testing Right Flexion (L2) 5 Normal Extension (S1) 4 Good Abduction 5 Normal Adduction 5 Normal External Rotation 3+ Fair+ Internal Rotation 5 Normal Left Flexion (L2) 5 Normal Extension (S1) 4 Good Abduction 5 Normal Adduction 3 Fair External Rotation 3+ Fair+ Internal Rotation 5 Normal PT-OP-T Assessment and Plan Start: 02/12/21 17:37 Freq: Status: Active Protocol: Document 03/11/21 11:29 LRN (Rec: 03/11/21 12:16 LRN [id number]) Physical Therapy Assessment Rehab Potential Rehabilitation Potential Excellent Evaluation Complexity Number of Personal Factors/Comorbidities 0 Number of Body Systems Impaired 3 Clinical Presentation at Evaluation Stable Impairments Impairments ROM,Strength Other Impairments Lack of education in proper coordination of exercise and transfers. Goals Two Impairment Pt lacks education in proper coordination of ex and transfer with breathing Short Term Goal (STG) Pt will be educated in proper coordination of breathing with exercise and transfers. STG Duration 02/22/21 (02/18/21: MET GOAL) Molded Goods Controls Operator Goal (LTG) Pt will have a good understanding of core pressure with exercise to decrease risk of further prolapse. (02/26/21: Pt educated in proper breathing techniques during exercise to reduce pressure on ) LTG Duration 03/08/21 (02/26/21: MET GOAL) One Impairment Pt lacks appropriate HEP Group Home Goal (LTG) Pt will be independent in a self care HEP. LTG Duration 03/08/21 (03/11/21: MET GOAL ) Assessment Summary Assessment Pt is doing very well with her current HEP, and appeared to have a good understanding of her exercises added today. The pt's goals were met today, after a necessary added visit for placement on a final HEP which included a trunk stretch and LE strengthening exercises. The pt will benefit from this final treatment session to meet the above stated goals. Physical Therapy Plan Frequency and Duration Frequency of Treatment 1x/Week Plan of Care Start Date 03/11/21 Plan of Care End Date 03/11/21 Therapeutic Interventions Therapeutic Interventions Home Exercise Program,Patient/ Caregiver Education,Self-Care/ Home Management,Therapeutic Activities,Therapeutic Exercises Discharge Physical Therapy Discharge Reasons Goals Met Discharge Comments Pt needed to be seen today for completion of her HEP and education as indicated above.
== END 2021-05-21 09:36 ==
LOC: PHYS 11:15
PROVIDERS: PCP Registered Nurse; Referring Provider Obstetrics & Gynecology; Visit Provider Obstetrics & Gynecology
DX: N81.10 Cystocele, unspecified (principal); N81.12 Cystocele, lateral; M62.81 Muscle weakness (generalized); K59.00 Constipation, unspecified
CPT/HCPCS: 97110; 97161; 97535